=== PATIENT | male | born 1990 | race American Indian/Alaskan Native ===

== ENCOUNTER 2019-04-07 23:06 | Emergency (ER) | payer SELFPAY ==
[2019-04-08 02:51] VITALS: BP 129/67
== END 2019-04-08 07:40 | disposition left against medical advice (07) ==
LOC: ED 23:06
DX: M54.5 Low back pain (principal); Z53.21 Procedure and treatment not carried out due to patient leaving prior to being seen by health care provider

== ENCOUNTER 2019-04-17 18:27 | Emergency (ER) | payer SELFPAY ==
[2019-04-17 19:36] VITALS: BP 124/75
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
== END 2019-04-17 22:59 | disposition left against medical advice (07) ==
LOC: ED 18:27
DX: G89.29 Other chronic pain (principal); M54.9 Dorsalgia, unspecified
CPT/HCPCS: 99281